=== PATIENT | male | born 1995 | race Caucasian/White ===

== ENCOUNTER 2018-11-30 16:35 | Emergency (ER) | payer BC ==
[2018-11-30 18:17] VITALS: BP 144/81
[2018-11-30] MEDS ORDERED: predniSONE TAB* 10 MG PO ONE (18:40)
[2018-11-30] MEDS ORDERED: diPHENhydraMINE PO* 25 MG PO ONE (18:40)
--- NOTE | 2018-11-30 18:40 | UC ---
Skin Complaint HPI - HPI Summary HPI Summary: Pt presents with c/o diffuse hives that his girlfriend noticed this evening when he went to her house. Pt states that he works as a online merchandising specialist at [employer] and is exposed to many chemicals but nothing differnet recently. Pt denies any diet changes or changes in detergents. He denies difficulty breathing, throat, tongue or lip swelling. Pt took 10 ML of childrens benadryl at 1630 today with some improvement of symptoms. - History of Current Complaint Chief Complaint: UCSkin Time Seen by Provider: 11/30/18 18:31 Stated Complaint: SKIN CONCERN Hx Obtained From: Patient Onset/Duration: Sudden Onset, Lasting Days Skin Exposure Onset/Duration: Hours Ago Timing: Constant Onset Severity: Mild Current Severity: Mild Pain Intensity: 6 Location: Diffuse Character: Pruritus, Redness, Raised Aggravating Factor(s): Nothing Alleviating Factor(s): Unknown Associated Signs & Symptoms: Positive: Rash - Allergy/Home Medications Allergies/Adverse Reactions: Allergies Allergy/AdvReac Type Severity Reaction Status Date / Time Penicillins Allergy Unknown Verified 11/30/18 18:12 Reaction Details Home Medications: Home Medications Montelukast Sodium TAB* [Singulair 10 MG TAB*] 1 tab DAILY 11/30/18 [History Confirmed 11/30/18] Sertraline* [Zoloft*] 100 mg PO BID 11/30/18 [History Confirmed 11/30/18] PMH/Surg Hx/FS Hx/Imm Hx Previously Healthy: Yes - Surgical History Surgical History: None - Family History Known Family History: Positive: Cardiac Disease - Social History Occupation: Employed Full-time Lives: With Family Alcohol Use: Rare Substance Use Type: None Smoking Status (MU): Never Smoked Tobacco Have You Smoked in the Last Year: No - Immunization History Vaccination Up to Date: Yes Review of Systems All Other Systems Reviewed And Are Negative: Yes Constitutional: Positive: Negative Skin: Positive: Rash - hives Eyes: Positive: Negative ENT: Positive: Negative Respiratory: Positive: Negative Cardiovascular: Positive: Negative Gastrointestinal: Positive: Negative Motor: Positive: Negative Neurovascular: Positive: Negative Musculoskeletal: Positive: Negative Neurological: Positive: Negative Psychological: Positive: Negative Is Patient Immunocompromised?: No Physical Exam Triage Information Reviewed: Yes Appearance: Well-Appearing Vital Signs: Initial Vital Signs Temp 97.9 F 11/30/18 18:14 Pulse 64 11/30/18 18:14 Resp 17 11/30/18 18:14 BP 144/81 11/30/18 18:14 Pulse Ox 99 11/30/18 18:14 Vital Signs Reviewed: Yes Eye Exam: Normal ENT Exam: Normal Dental Exam: Normal Neck exam: Normal Respiratory Exam: Normal Respiratory: Positive: Normal breath sounds, No respiratory distress Cardiovascular Exam: Normal Musculoskeletal Exam: Normal Neurological Exam: Normal Psychological Exam: Normal Skin: Positive: Rashes - diffuse hives Course/Dx - Differential Diagnoses - Skin Complaint Differential Diagnoses: Contact Dermatitis, Urticaria - Diagnoses Provider Diagnosis: Urticaria Discharge - Sign-Out/Discharge Documenting (check all that apply): Patient Departure All imaging exams completed and their final reports reviewed: No Studies - Discharge Plan Condition: Stable Disposition: HOME Prescriptions: Cetirizine* [ZyrTEC 10 MG TAB*] 10 mg PO DAILY #7 tab predniSONE TAB* [Deltasone 10 MG TAB*] 30 mg PO DAILY #12 tab Patient Education Materials: Antihistamine (By mouth), Urticaria (ED) Referrals: Pablo Pereyra MD [Primary Care Provider] - If Needed - Billing Disposition and Condition Condition: STABLE Disposition: Home
== END 2018-11-30 18:55 | disposition home or self-care (01) ==
LOC: UCCORT 16:35
DX: L50.9 Urticaria, unspecified (principal)
CPT/HCPCS: 99202; A9270-GY; G0463; J7512